=== PATIENT | male | born 1975 | race Caucasian/White ===

== ENCOUNTER → 2020-07-30 | Outpatient (REF) | payer OTHER | LOC: M SMT 12:58 | PROVIDERS: ATTEND Urology | DX: Z30.2 Encounter for sterilization (principal) ==

== ENCOUNTER → 2020-10-31 | Outpatient (REF) | payer OTHER ==
[2020-10-31 14:56] LABS: SEMEN APPEARANCE OPAQUE (OPAQUE); SEMEN VISCOSITY LIQUID (LIQUID); SEMEN VOLUME 1.5 ml (2.0-5.0); WBC CONCENTRATION <=1 M/ml (<=1 M/ml)
== END ==
LOC: M SMT 14:13
PROVIDERS: ATTEND Urology
DX: Z30.2 Encounter for sterilization (principal)

== ENCOUNTER → 2023-03-17 | Outpatient (CLI) | payer BC, OTHER ==
[2023-03-17 14:33] LABS: ESTRADIOL 34.1 PG/ML (<39.8); FOLLICLE STIMULATING HORMONE 2.8 mIU/ML (1.4-18.1); LUTEINIZING HORMONE 1.6 mIU/ML (1.5-9.3)
== END ==
LOC: M PLALAB 09:39
PROVIDERS: ATTEND Physician Assistant
DX: E29.1 Testicular hypofunction (principal)

== ENCOUNTER → 2023-03-18 | Outpatient (CLI) | payer BC, OTHER | LOC: M PLALAB 09:50 | PROVIDERS: ATTEND Physician Assistant | DX: E29.1 Testicular hypofunction (principal) ==

== ENCOUNTER → 2023-09-02 | Outpatient (CLI) | payer BC, OTHER ==
[2023-09-02 11:56] LABS: BASO # 0.1 10^3/uL (0.0-0.2); BASO % 0.7 % (0.0-1.0); EOS # 0.1 10^3/uL (0.0-0.5); EOS % 1.5 % (0.0-3.0); HEMATOCRIT 45.4 % (42.0-52.0); HEMOGLOBIN 15.3 g/dl (13.5-17.5); LYMPH # 2.9 10^3/uL (1.5-5.0); LYMPH % 32.7 % (24.0-44.0); MEAN CORPUSCULAR HEMOGLOBIN 28.6 pg (27.0-33.0); MEAN CORPUSCULAR HGB CONC 33.7 g/dl (32.0-36.5); MEAN CORPUSCULAR VOLUME 84.9 fl (80.0-96.0); MONO # 0.7 10^3/uL (0.0-0.8); MONO % 8.3 % (2.0-8.0); NEUTROPHILS % 56.2 % (36.0-66.0); PLATELET COUNT, AUTOMATED 223 10^3/uL (150-450); RED BLOOD COUNT 5.35 10^6/uL (4.30-6.10); WHITE BLOOD COUNT 8.9 10^3/uL (4.0-10.0)
[2023-09-03 10:12] LABS: TESTOSTERONE FREE (DIRECT) 8.9 pg/mL (6.8-21.5)
== END ==
LOC: M PLALAB 08:13
PROVIDERS: ATTEND Physician Assistant
DX: E29.1 Testicular hypofunction (principal)

== ENCOUNTER → 2024-12-03 | Outpatient (CLI) | payer BC, OTHER ==
[2024-12-03 12:54] LABS: HEMATOCRIT 50.5 % (42.0-52.0); HEMOGLOBIN 16.9 g/dl (13.5-17.5); MEAN CORPUSCULAR HGB CONC 33.5 g/dl (32.0-36.5); MEAN CORPUSCULAR VOLUME 86.8 fl (80.0-96.0); PLATELET COUNT, AUTOMATED 205 10^3/uL (150-450); RED BLOOD COUNT 5.82 10^6/uL (4.30-6.10); WHITE BLOOD COUNT 6.1 10^3/uL (4.0-10.0)
[2024-12-03 13:17] LABS: PSA SCREENING 0.47 NG/ML (< 4.00)
== END ==
LOC: M WUC 08:46
PROVIDERS: ATTEND Physician Assistant
DX: E29.1 Testicular hypofunction (principal)

== ENCOUNTER → 2024-12-04 | Outpatient (REF) | payer BC | LOC: M LABSMT 15:23 | PROVIDERS: ATTEND Physician Assistant | DX: E29.1 Testicular hypofunction (principal) ==

== ENCOUNTER → 2025-06-03 | Outpatient (CLI) | payer BC ==
[2025-06-03 14:20] LABS: PLATELET COUNT, AUTOMATED 236 10^3/uL (150-450)
== END ==
LOC: M PLALAB 09:37
PROVIDERS: ATTEND Physician Assistant
DX: E29.1 Testicular hypofunction (principal)